=== PATIENT | female | born 2005 | race Two or more races ===

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

== ENCOUNTER 2025-02-15 21:12 | Emergency (ER) | payer MEDICAID, SELFPAY ==
[2025-02-15 21:14] VITALS: BMI 40.9
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
[2025-02-15 21:46] VITALS: BP 118/72; PULSE 76; RESP 17; TEMP 37; O2SAT 100
--- NOTE | 2025-02-15 22:10 | PC.NURSE ---
Pharmacy holding for test per dr. almaz henriquez to give with out hcg
[2025-02-15] MEDS: IBUPROFEN TAB 400 MG TABLET 800 MG PO (22:18)
[2025-02-15] MEDS: ONDANSETRON ODT 4 MG TABRAP PO (22:19)
[2025-02-15] MEDS: ACETAMINOPHEN w/COD 300-30 TABLET 2 TAB PO (22:19)
== END 2025-02-16 00:01 | disposition home or self-care (01) ==
PROVIDERS: Emergency Provider Emergency Medicine
DX: M54.2 Cervicalgia (principal); R42 Dizziness and giddiness; R51.9 Headache, unspecified
CPT/HCPCS: 70450; 72125; 99282; Q0162; A9270